=== PATIENT | female | born 1940 | race Caucasian/White ===

== ENCOUNTER 2020-10-14 16:23 | Emergency (ER) | payer OTHER ==
[~2020-10-14 16:23] MED LIST: CHLORPHENIRAMINE4 MG PO; PROTONIX 40MG T40 MG PO; SYNTHROID125 MCG PO; VITAMIN D5000 UNIT PO
[2020-10-14 18:00] LABS: BASOPHIL 0.8 % (0-2); EOSINOPHIL 1.5 % (0-7); HCT 37.7 % (37.0-47.0); HGB 12.6 g/dl (12.5-16.0); LYMPHOCYTE 28.1 % (15-48); MCH 30.4 pg (25.0-31.0); MCHC 33.4 g/dL (32.0-36.0); MCV 90.8 fL (78.0-100.0); NEUTROPHIL 61.4 % (41-80); NRBC 0; PLT 194 K/uL (150-400); RBC 4.15 M/uL (4.20-5.40); RDW 12.5 % (11.5-14.0); WBC 5.2 K/uL (4.0-10.5)
[2020-10-14 18:31] LABS: BILIRUBIN NEGATIVE (NEGATIVE); BLOOD NEGATIVE Ery/uL (NEGATIVE); CLARITY CLEAR (CLEAR); COLOR YELLOW (YELLOW); GLUCOSE (U) NORMAL (NORMAL); LEUKOCYTES NEGATIVE Leu/uL (NEGATIVE); NITRITE NEGATIVE (NEGATIVE); PROTEIN NEGATIVE (NEGATIVE); UROBILINOGEN 0.2 mg/dL (0.2-1.0)
[2020-10-14 18:41] LABS: ALBUMIN 3.8 g/dL (3.4-5.0); BILIRUBIN - TOTAL 0.4 mg/dL (0.2-1.0); BUN/CREAT RATIO (CALC) 21.7 RATIO; CREATININE 0.69 mg/dL (0.51-0.95); GLOBULIN (CALCULATION) 2.9 g/dL; TOTAL PROTEIN 6.7 g/dL (6.4-8.2); VITAMIN D (25-OH) 67.5 ng/mL (30.0-100.0)
[2020-10-14] MEDS ORDERED: PRINIVIL10 MG PO (21:05)
== END 2020-10-14 22:40 | disposition home or self-care (01) ==
LOC: FER 16:23
PROVIDERS: Internal Medicine
DX: I10 Essential (primary) hypertension (principal); R01.1 Cardiac murmur, unspecified; R41.89 Other symptoms and signs involving cognitive functions and awareness
CPT/HCPCS: 36415; 70450; 80053; 81003; 82306; 82607; 84443; 84484; 85025; 93005